=== PATIENT | male | born 1985 | race Caucasian/White ===

== ENCOUNTER 2025-04-02 10:26 | Outpatient (REF) | payer MEDICAID, OTHER, SELFPAY ==
--- OUTSIDE RECORDS SUMMARY | 2025-04-02 09:00 | XMS_ITS | Encounter Summary ---
Author Organization [employer] Address [address] [place] [address] 7 [place] [address] Care Team Providers Care Commercial Lines Assistant Name Role Phone Peter Bey MD Primary Care Provider Reason for Referral * Consultation (Routine) - Authorized Specialty Diagnoses / Procedures Referred By Wily t Referred To Contact Behavioral Health Diagnoses Situational stress Situational insomnia Anxiety Peter Bey MD [address] [place] [address] Phone: tel: fax: Referral ID Status Reason Start Date Expiration Date Visits Requested Visits Authorized [id number] Authorized Specialty Services Required 04/02/2025 04/02/2026 1 1 Reason for Visit * Reason Comments initial patient visit Encounter Details Date Type Department Care Team (Late st Contact Info) Description 04/02/2025 9:00 AM EDT Office Visit [facility] [address] [place] [address] [phone] Peter Bey MD [address] [place] [address] [phone] Anxiety (Primary Dx); Situational stress; Situational insomnia; Screening for cholesterol level; Screening for diabetes mellitus; Encounter for immunization Social History Tobacco Use Types Packs/Day Years Used Date Smoking Tobacco: Never Smokeless Tobacco: Never Tobacco Cessation:Counseling Given: Not Answered Alcohol Use Standard Drinks/Week Comments Never 0 (1 standard drink = 0.6 oz pur e alcohol) Depression Answer Date Recorded Patient Health Questionnaire-9 Score 1 04/02/2025 Patient Health Questionnaire-9 Score 1 04/02/2025 Last PHQ-9: Questionnaire Data Not on file 1 Housing Stability Answer Date Recorded What is your housing situation today? I have diana díaz 04/02/[address] you li ve. Do you have problems with any of the following? None of the above 04/02/2025 Food Insecurity Answer Date Recorded Within the past 12 months, y ou worried that your food would run out before you got money to buy more: Never True 04/02/2025 Within the past 12 months,th e food you bought just didn't last and you didn't have enough money to get more: Never True 07/2024 Transportation Answer Date Recorded In the past 12 months, has l ack of transportation kept you from medical appts, meetings, work or from getting things needed for daily living? No 04/02/2025 Utilities Answer Date Recorded In the past 12 months, has t he electric, gas, oil or water company threatened to shut off services in your home? No 04/02/2025 Depression Answer Date Recorded Patient Health Questionnaire-2 Score 0 04/02/2025 Internet Access Answer Date Recorded Internet Access Q1 Yes 04/02/2025 Internet Access Q2 Not on file 04/02/2025 Sex and Gender Information Value Date Recorded Sex Assigned at Male 05/02/2022 10:40 AM EDT Legal Sex Male 10:40 AM EDT Gender Identity Male 05/02/2022 10:40 AM EDT Sexual Orientation Straight 05/02/2022 10 :40 AM EDT documented as of this encounter Last Filed Vital Signs Vital Sign Reading Time Taken Comments Blood Pressure 122/84 04/02/2025 9:06 AM EDT Pulse 76 04/02/2025 9:06 AM EDT Temperature 36.8 C (98.2 F) 04/02/2025 9:06 AM EDT Respiratory Rate 18 04/02/2025 9:06 AM EDT Oxygen Saturation 99% 04/02/2025 9:06 AM EDT Inhaled Oxygen Concentration - - Weight 85.8 kg (189 lb 3.2 oz) 04/02/2025 9:06 A M EDT Height 180.3 cm (5' 11 ) 04/02/2025 9:06 AM EDT Body Mass Index 26.39 04/02/2025 9:06 AM EDT documented in this encounter Functional Status * Over the past 2 weeks, how often have you been bothered by any of the following problems? Question Answer Date of Assessment Author Patient Health Questionnaire -2 Score 0 04/02/2025 9:58 AM Laura Angel MA * Little interest or pleasure in doing things Answer Date of Assessment Author Not at all 04/02/2025 9:58 AM Barb Angel MA * Feeling down, depressed, or hopeless Answer Date of Assessment Author Not at all 04/02/2025 9:58 AM Barb Angel MA * Trouble falling or staying asleep, or sleeping too much Answer Date of Assessment Author Not at all 04/02/2025 9:58 AM Barb Angel MA * Feeling tired or having little energy Answer Date of Assessment Author Several days 04/02/2025 9:58 AM Barb Angel MA * Poor appetite or overeating Answer Date of Assessment Author Not at all 04/02/2025 9:58 AM Barb Angel MA * Feeling bad about yourself - or that you are a failure or have let yourself or your family down Answer Date of Assessment Author Not at all 04/02/2025 9:58 AM Barb Angel MA * Trouble concentrating on things, such as reading the newspaper or watching television Answer Date of Assessment Author Not at all 04/02/2025 9:58 AM Barb Angel MA * Moving or speaking so slowly that other people could have noticed? Or the opposite - being so fidgety or restless that you have been moving around a lot more than usual. Answer Date of Assessment Author Not at all 04/02/2025 9:58 AM Barb Angel MA * Thoughts that you would be better off or hurting yourself in some way Answer Date of Assessment Author Not at all 04/02/2025 9:58 AM Barb Angel MA * Patient Health Questionnaire-9 Score Answer Date of Assessment Author 1 04/02/2025 9:58 AM EDT Barb Raya MA * How difficult have these problems made it for you to do your work, take care of things at home, or get along with other people? Answer Date of Assessment Author Not difficult at all 04/02/2025 9:58 AM EDT Barb Felix MA * Over the last 2 weeks, how often have you been bothered by any of the following problems? Question Answer Date of Assessment Author Feeling nervous, anxious, or on edge 1 04/02/2025 9:58 AM EDT Laura Raya MA Not being able to stop or control worrying 1 04/02/2025 9:58 AM EDT Laura Raya MA Worrying too much about different things 1 04/02/2025 9:58 AM EDT Laura Raya MA Trouble relaxing 0 04/02/2025 9:58 AM EDT Barb Laws MA Being so restless that it is hard to sit still 0 04/02/2025 9:58 AM EDT Laura Raya MA Becoming easily annoyed or irritable 0 04/02/2025 9:58 AM ALFREDOT Laura Raya MA Feeling afraid as if somethi ng awful might happen 0 04/02/2025 9:58 AM EDT Laura Raya MA CONCHIS-7 Total Score 3 04/02/2025 9:58 AM EDT Barb Raya MA documented as of this encounter Progress Notes * Peter Bey MD - 04/02/2025 9:00 AM EDT Subjective Patient ID: Tashi Mclain is a 40 y.o. male who presents for initial patient visit. Patient comes today for the first time to see me. The patient complains of significant stress, insomnia for several weeks related to a recent divorce. He is not suicidal or homicidal. The patient is physically active, he exercises regularly and has a very good exercise tolerance. He does not drink alcohol, does not smoke cigarettes or use illicit drugs. 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 He does not use any medications. He is interested in medication to help him sleep but does not want anything too strong. Review of Systems Constitutional: Negative for chills, fatigue and fever. HENT: Negative for sore throat. Respiratory: Negative for cough, chest tightness and shortness of breath. Cardiovascular: Negative for chest pain, palpitations and leg swelling. Gastrointestinal: Negative for abdominal pain and blood in stool. Psychiatric/Behavioral: Positive for sleep disturbance. The patient is nervous/anxious. Objective Vitals: 04/02/25 0906 BP: 122/84 BP Location: Left arm Patient Position: Sitting BP Cuff Size: Adult Pulse: 76 Resp: 18 Temp: 98.2 ??F (36.8 ??C) TempSrc: Temporal SpO2: 99% Weight: 189 lb 3.2 oz (85.8 kg) Height: 5' 11 (1.803 m) Physical Exam Constitutional: Appearance: Normal appearance. Cardiovascular: Rate and Rhythm: Normal rate and regular rhythm. Heart sounds: No murmur heard. Pulmonary: Effort: Pulmonary effort is normal. No respiratory distress. Breath sounds: No wheezing, rhonchi or rales. Abdominal: Palpations: Abdomen is soft. Tenderness: There is no abdominal tenderness. Musculoskeletal: Right lower leg: No edema. Left lower leg: No edema. Neurological: Mental Status: He is alert. Assessment/Plan Diagnoses and all orders for this visit: Anxiety Comments: I recommended trial of hydroxyzine at bedtime. Referral to behavioral health. Orders: - Referral to Behavioral Health; Future Situational stress - Referral to Behavioral Health; Future Situational insomnia - Referral to Behavioral Health; Future Screening for cholesterol level Comments: I recommended evaluation with fasting blood work listed below. Orders: - Lipid Panel, Standard; Future Screening for diabetes mellitus - Comprehensive Metabolic Panel; Future - CBC auto differential; Future Encounter for immunization Comments: Tdap and flu vaccines today. Orders: - TDAP VACCINE 7 yrs + - FLU VACCINE TRIVALENT [id number] (Fluarix) 19 yrs + Other orders - hydrOXYzine pamoate (Vistaril) 50 MG capsule; Take 1 capsule (50 mg) by mouth if needed at bedtime for itching for up to 10 days. documented in this encounter Plan of Treatment Upcoming Encounters Date Type Department Care Team (Late st Contact Info) Description 07/02/2025 9:30 AM EST Office Visit [facility] [address] [place] [address] [place], [place] [address] Scheduled Orders Name Type Priority Associated Diagnoses Orde r Schedule Comprehensive Metabolic Panel Lab Routine Screening for diabetes mellitus Expected: 04/02/2025 (Approximate), Expires: 04/02/2026 Lipid Panel, Standard Lab Routine Screening for cholesterol level Expected: 04/02/2025 (Approximate), Expires: 04/02/2026 CBC auto differential Lab Routine Screening for diabetes mellitus Expected: 04/02/2025 (Approximate), Expires: 04/02/2026 Scheduled Referrals Name Type Priority Associated Diagnoses Order Schedule Referral to Behavioral Health Outpatient Referral Routine Situational stress Situational insomnia Anxiety Expected: 04/02/2025 (Approximate), Expires: 09/30/2026 documented as of this encounter Visit Diagnoses Diagnosis Anxiety- Primary Anxiety state, unspecified Situational stress Other psychological or physical stress, not elsewhere classified Situational insomnia Screening for cholesterol level Screening for diabetes mellitus Encounter for immunization documented in this encounter Additional Health Concerns Assessment Noted Time PHQ-9 Depression Total Score: 1 04/02/20 9:58 AM EDT documented as of this encounter Care Teams Commercial Lines Assistant Relationship Specialty Start Date End Date Name, [place] [address] PCP - General Internal Medicine 04/02/25 documented as of this encounter
--- OUTSIDE RECORDS SUMMARY | 2025-04-02 12:05 | XMS_ITS | Encounter Summary ---
Author Organization [employer] [facility] Address [address] [place] [address] 7 [place] [address] Care Team Providers Care System Administration Advisor Name Role Phone Name, Peter GARCIA Primary Care Provider [phone] Encounter Details Date Type Department Care Team (Latest Contact Info) Description 02/23/2022 Abstract [facility], Provider, DDS Social History Tobacco Use Types Packs/Day Years Used Date Smoking Tobacco: Never Assessed Sex and Gender Information Value Date Recorded Sex Assigned at Male 05/02/2022 10:40 AM EDT Legal Sex Male 10:40 AM EDT Gender Identity Male 05/02/2022 10:40 AM EDT Sexual Orientation Straight 05/02/2022 10 :40 AM EDT documented as of this encounter Plan of Treatment Upcoming Encounters Date Type Department Care Team (Late st Contact Info) Description 07/02/2025 9:30 AM EST Office Visit [facility] [address] [place] [address] Name, MD Peter [address] [place] [address] documented as of this encounter Visit Diagnoses Not on filedocumented in this encounter Care Teams System Administration Advisor Relationship Specialty Start Date End Date Name, MD Peter [address] [place] [id number] PCP - General Internal Medicine 04/02/25 documented as of this encounter
--- OUTSIDE RECORDS SUMMARY | 2025-04-02 12:06 | XMS_ITS | Clinical Summary ---
Author Organization [facility] [facility] Address [address] [place] [address] 7 [place] [address] Care Team Providers Care Collection Officer Name Role Phone Name, Peter GARCIA Primary Care Provider [phone] Allergies No known active allergies Medications * This document contains information received from the source organization and may not represent a complete record from that organization. hydrOXYzine pamoate (Vistaril) 50 MG capsule Take 1 capsule (50 mg) by mouth if needed at bedtime for itching for up to 10 days. 30 capsule 04/02/2025 Active Active Problems Problem Noted Date Diagnosed Date Marital problem 04/02/2025 Encounters * This document contains information received from the source organization and may not represent a complete record from that organization. Date Type Department Care Team Description 04/02/2025 9:00 AM EDT Office Visit [facility] [address] [place] [id number] Peter Bey MD Anxiety (Primary Dx); Situational stress; Situational insomnia; Screening for cholesterol level; Screening for diabetes mellitus; Encounter for immunization 03/26/[address] [facility] [address] [place] [address] Peter Bey MD Pre-visit Planning ([facility] unable to reach [facility]) 01/10/[address] [facility] [address] [place] [address] Rigo Tompkins MD from Last 3 Months Immunizations Immunization Administration Dates Next Due Influenza, seasonal, injectable, preservative fr ee 04/02/2025 Tdap 04/02/2025 Family History Medical History Relation Name Comments Hypertension Father Relation Name Status Comments Father Alive Social History Tobacco Use Types Packs/Day Years [...] Orientation Straight 05/02/2022 10 :40 AM EDT Last Filed Vital Signs Vital Sign Reading [...] Mass Index 26.39 04/02/2025 9:06 AM EDT Plan of Treatment Upcoming Encounters Date Type Department Care Team (Late st Contact Info) Description 07/02/2025 9:30 AM EST Office Visit [facility] [address] [place] [address] Name, MD Peter [address] [place] [address] Health Maintenance Due Date Last Done Comments Family Planning (PISQ) 2002 HPV Vaccines (1 - Male 3-dos e series) 2002 Hepatitis B Vaccines (1 of 3 - 19+ 3-dose series) 2006 COVID-19 Vaccine (2023-2 5 season) 2025 Alcohol/Substance Use Screening 04/02/2026 04/02/2025 Depression Screening 04/02/2026 04/02/2025, 04/02/2025 Disability Screening 04/02/2026 04/02/2025 SDOH Screening 04/02/2026 04/02/2025 Tobacco Screening 04/02/2026 04/02/2025 Lipid Panel 12/01/2026 12/01/2021 DTaP/Tdap/Td Vaccines (2 - T d or Tdap) 04/02/2035 04/02/2025 Zoster Vaccines (1 of 2) 2037 RSV Patients and Patients Aged 60 years or older (1 - 1-dose 75+ series) 2062 HIV Screening Completed 12/01/2021 Hepatitis C Screening Completed 12/01/2021 Influenza Vaccine Completed 04/02/2025 HIB Vaccines Aged Out No longer eligi ble based on patient's age to complete this topic Hepatitis A Vaccines Aged Out No long er eligible based on patient's age to complete this topic IPV Vaccines Aged Out No longer eligi ble based on patient's age to complete this topic Meningococcal B Vaccine Aged Out No l onger eligible based on patient's age to complete this topic Meningococcal Vaccine Aged Out No luis antonio renetta eligible based on patient's age to complete this topic Pneumococcal Vaccine: Pediatrics (0 to 5 Years) and At-Risk Patients (6 to 49) Years Aged Out No longer eligible b ased on patient's age to complete this topic RSV under 20 months Aged Out No longe r eligible based on patient's age to complete this topic Rotavirus Vaccines Aged Out No longer eligible based on patient's age to complete this topic Procedures Procedure Name Priority Date/Time Associated Diagnosis Comments ZZZ HISTORICAL HEPATITIS C AB W/REFL TO HCV RNA, QN, PCR Routine 12/01/2021 10:30 AM EDT HIV 1/2 ANTIGEN/ANTIBODY, FOURTH GENERATION W/RFL Routine 12/01/2021 10:30 AM EDT LIPID PANEL, STANDARD Routine 12/01/2021 10:30 AM EDT from Last 3 Months or Most Recently Relevant to Health Maintenance Results * HEPATITIS C AB W/REFL TO HCV RNA, QN, PCR (12/01/2021 10:30 AM EDT) HEPATITIS C ANTIBODY NON-REACT MARYBEL NON-REACT MARYBEL [facility] INDEX 0.07 <1.00 [facility] Comment: HCV antibody was non-reactive. There is no laboratory evidence of HCV infection. In most cases, no further action is required. However, if recent HCV exposure is suspected, a test for HCV RNA (test code 42811) is suggested. For additional information please refer to http://education.Munchkin.[place]/faq/TWW01n2 (This link is being provided for informational/ educational purposes only.) 12/01/2021 10:3 0 AM EDT [facility] HEAD GREENSKEEPER HISTORICAL/NON ORDERABLE LABS Final Result [facility] [address] * HIV 1/2 ANTIGEN/ANTIBODY,FOURTH GENERATION W/RFL (12/01/2021 10:30 AM EDT) Pathologist [facility] [place] HIV-1/2 ANTIGEN AND ANTIBODIES, 4TH GENERATION W/ REFLEX NON-REACT MARYBEL NON-REACT MARYBEL [facility] Comment: HIV-1 antigen and HIV-1/HIV-2 antibodies were not detected. There is no laboratory evidence of HIV infection. PLEASE NOTE: This information has been disclosed to you from records whose confidentiality may be protected by state law. If your state requires such protection, then the state law prohibits you from making any further disclosure of the information without the specific written consent of the person to whom it pertains, or as otherwise permitted by law. A general authorization for the release of medical or other information is NOT sufficient for this purpose. For additional information please refer to http://Dreampod.Backchat/faq/JSQ534 (This link is being provided for informational/ educational purposes only.) The performance of this assay has not been clinically validated in patients less than 2 years old. 12/01/2021 10:3 0 AM EDT [facility] LAB BLOOD ORDERABLES Final Re sult [facility] [address] * (ABNORMAL) LIPID PANEL, STANDARD (12/01/2021 10:30 AM EDT) [facility] Chol/HDLC Ratio 3.5 <5.0 (calc) [facility] Cholesterol, Total 196 <200 mg/dL [facility] HDL Cholesterol 56 > OR = 40 mg/dL [facility] LDL Cholesterol 117(H) mg/dL (calc) [facility] Comment: Reference range: <100 Desirable range <100 mg/dL for primary prevention; <70 mg/dL for patients with CHD or diabetic patients with > or = 2 CHD risk factors. LDL-C is now calculated using the Enrrique calculation, which is a validated novel method providing better accuracy than the Friedewald equation in the estimation of LDL-C. Chadd GREENBERG et al. LOLA. 2013;310(19): 2173-8868 (http://education.Bizratings.com.[place]/faq/PAL639) Non-HDL Cholesterol 140(H) <130 mg/dL (calc) [facility] Comment: For patients with diabetes plus 1 major ASCVD risk factor, treating to a non-HDL-C goal of <100 mg/dL (LDL-C of <70 mg/dL) is considered a therapeutic option. Triglycerides 115 <150 mg/dL [facility] 12/01/2021 10:3 0 AM EDT [facility] [employer] LAB BLOOD ORDERABLES Final Re sult [facility] [address] from Last 3 Months or Most Recently Relevant to Health Maintenance Insurance [facility] F[facility] Care Teams Collection Officer Relationship Specialty Start Date End Date Name, MD Peter [address] [place] [id number] PCP - General Internal Medicine 04/02/25
[2025-04-02 13:10] LABS: MANUAL DIFF FLAG NO
[2025-04-02 13:14] LABS: Hematocrit 42.9 % (42.0-52.0); Hemoglobin 15.0 g/dl (14.0-18.0); Imm Gran Abs Auto 0.02 X10*3/uL (0.00-0.03); Imm Gran Pct Auto 0.2 % (0.0-0.4); Lymphocytes Absolute Auto 2.2 X10*3/uL (1.2-4.9); Mean Corpuscular HGB Conc 35.0 g/dl (31.0-36.0); Mean Corpuscular Hemoglobin 29.0 pg (27.0-33.0); Mean Corpuscular Volume 83.0 fL (80.0-98.0); NRBC Abs Auto 0.000 X10*3/uL (0.0-0.012); NRBC Pct Auto 0.0 /100WBC (0.0-0.2); Platelet Count 244 X10*3/uL (160-400); Red Blood Count 5.17 X10*6/uL (4.60-5.80); White Blood Count 8.3 X10*3/uL (4.8-10.8)
[2025-04-02 13:43] LABS: Alanine Aminotransferase 35 U/L (0-40); Albumin Level 5.3 g/dL (3.5-5.0); Alkaline Phosphatase 64 U/L (39-117); Anion Gap 12 (12-20); Aspartate Amino Transferase 43 U/L (5-37); Blood Urea Nitrogen 13 mg/dL (9-16); Calcium 10.1 mg/dL (8.4-10.2); Carbon Dioxide 27 mmol/L (22-29); Chloride 105 mmol/L (96-108); Cholesterol 194 mg/dL (<200); Estimated Glomerular Filt Rate > 60; HDL Cholesterol 63 mg/dL (>40); Potassium 4.3 mmol/L (3.3-5.1); Sodium 140 mmol/L (135-145); Total Protein 8.3 g/dL (6.5-8.0); Triglycerides 60 mg/dL (<150)
== END 2025-04-02 10:27 | disposition home or self-care (01) ==
LOC: HO.HHCL 10:26
PROVIDERS: PCP Internal Medicine Geriatric Medicine; Visit Provider Internal Medicine Geriatric Medicine
DX: Z13.220 Encounter for screening for lipoid disorders (principal); Z13.1 Encounter for screening for diabetes mellitus
CPT/HCPCS: 36415; 80053; 80061; 85025

== ENCOUNTER 2025-06-14 09:59 | Emergency (ER) | payer MEDICAID, OTHER, SELFPAY ==
[2025-06-14 10:21] VITALS: BP 109/54; PULSE 76; RESP 16; TEMP 36.5; O2SAT 98; BMI 27.7
[2025-06-14 10:51] LABS: Appearance Urine Clear; Glucose Urine UA Negative (Negative); PH 6.5 (5.0-9.0); Specific Gravity - Urine 1.020 (1.005-1.025)
--- NOTE | 2025-06-14 11:47 | ED.MALEGU ---
HPI - Male Genitourinary General Chief complaint: Urogenital-Male Stated complaint: flu symptoms Time Seen by Provider: 06/14/25 12:11 Source: patient, RN notes reviewed and japanese interpreter Mode of arrival: ambulatory Limitations: no limitations History of Present Illness ED Provider: Aimee Rai PA-C HPI Narrative: The patient is a male who presents to the emergency department with a 5-day history of a mild, burning sensation of the penis. The burning is not associated with urination; it occurs primarily at night while lying in bed. He denies dysuria, penile discharge, testicular pain, or rash. He reports recent oral sexual contact and subsequently wiped the genital area with wet wipes he had not used before. He observed a transient dark spot on the glans that resolved spontaneously. He is uncircumcised and has never previously experienced similar symptoms. Patient notes that in his cultural background ( Latinos, we don't do circumcisions ), he has never had any prior issues related to being uncircumcised. The patient also reports feeling ?tired? since yesterday and refers to this as ?the flu,? though he has not been formally tested or diagnosed. He denies seeking care for flu-like symptoms today; primary concern is the genital burning. Genitourinary: Burning sensation of penis (non-urination related) present. Denies dysuria, hematuria, penile discharge, testicular pain, or scrotal swelling. Constitutional: Mild fatigue since yesterday. Denies fever or chills. ENT/Respiratory: Denies cough, sore throat, or nasal congestion. Related Data Home Medications ?Medication ?Instructions ?Recorded ?Confirmed mirtazapine 15 mg tablet 15 mg PO BEDTIME 07/04/25 07/04/25 Allergies Allergy/AdvReac Type Severity Reaction Status Date / Time No Known Allergies Allergy Verified 07/03/25 19:40 Review of Systems Review of Systems: Yes all other systems are reviewed and are negative PMFSH Past Medical History Attestation statement: The following information was validated with the patient. Source: old records reviewed and nursing notes reviewed Surgical History History of incision and drainage Social History Social History Household Members: Other Housing: House Alcohol intake: never Patient Tobacco Use Status: Never used Tobacco Physical Exam Exam: Exam: General: Appears in no acute distress, appears well nourished body habitus is overweight, appears stated age. No septic or ill-appearing. Vitals reviewed normal, PMH/Social and Surgical hx reviewed including allergies and current medications. - reviewed for prior visits here Head: Normocephalic, no obvious trauma or skin lesions noted. Eyes: EOMI ENMT: moist oral mucosa, no lesions Neck: trachea midline, no lymphadenopathy Cardiovascular: peripheral perfusion normal, Regular heart rate Respiratory: no respiratory distress Abdomen: nondistended male: tests distended, no torsion, swelling, erythema, nodules or ttp, no groin lymphadenopathy, 0.5 cm ? 0.4 cm flat, hyperpigmented healing abrasion on the glans, consistent with friction burn. No ulcers, surrounding erythema, or tenderness. Testicles normal. Maintenance Of Way Superintendent present. Extremities: warm and moving without difficulty Psych: Cooperative Neuro: Alert and oriented.? Vital Signs: Vital Signs: Last Vital Signs Temp 97.7 F 06/14/25 12:17 Pulse 76 06/14/25 12:17 Resp 16 06/14/25 12:17 BP 109/54 L 06/14/25 12:17 Pulse Ox 98 06/14/25 12:17 O2 Del Method Room Air 06/14/25 12:17 BMI result Body Mass Index 27.7 Medical Decision Making Medical Decision Making [facility] Narrative: Patient with 5-day history of penile burning likely related to localized irritation/friction burn versus possible candidal balanitis; STI work-up in progress. UA negative for UTI. Problem #1: Penile burning / healing friction abrasion Assessment: Healing hyperpigmented lesion on glans consistent with friction burn following recent sexual activity; no signs of active infection. Burning sensation occurs outside of urination; UA normal. Plan: Topical petroleum jelly recommended for local comfort and to promote healing. Educated on gentle hygiene; avoid irritants such as scented wet wipes. Await STI panel results; patient to be notified when available. Return earlier for increasing pain, discharge, spreading redness, or systemic symptoms. Differential Diagnosis Differential Diagnoses: The differential diagnosis associated with the presentation includes Penile lesion abrasion infectious cellulitis STI Admission/Observation Consideration of admission/observation: Escalation of care including admission/observation considered Lab Data [facility] Lab Attestation statement: I reviewed the patient's lab results. UA neg, g/c negative. no lesions to swab for syphilis or HSV Labs: Lab Results 06/14/25 06/14/25 Range/Units 10:43 10:45 Urine Color Yellow Urine Appearance Clear Urine pH 6.5 (5.0-9.0) Ur Specific [place] 1.020 (1.005-1.025) Urine Protein Negative (Neg-Trace) mg/dL Urine Glucose (UA) Negative (Negative) mg/dL Urine Ketones Negative (Negative) mg/dL Urine Blood Negative (Negative) Urine Nitrite Negative (Negative) Ur Leukocyte Esterase Negative (Negative) Ur N gonorrhoeae DNA (PCR) NOT DETECTED (Not Detect.) Ur Chlamydia DNA (PCR) NOT DETECTED (Not Detect.) Prescription Management I considered prescription management with: Antibiotic Social Determinants Patient?s care significantly limited by Social Determinants of Health including: Other Social Determinant of Health Discharge Plan Discharge Clinical Impression: Friction burn Patient Disposition: Home, Self-Care Additional Instructions: You have a healing friction burn on your penis. This is not consistent with sexually transmitted infection. Your urine is not infected. Your gonorrhea/ chlamydia test is pending. If positive, we will call you with these results as early as Monday. Recommend putting vasoline on this area as it heals. Return for any concerns. Voc? apresenta rasheed queimadura por atrito em processo de cicatriza??o no p?nis. Isso n?o ? compat?silvio com infec??o sexualmente transmiss?silvio. Sua urina n?o est? infectada. O resultado do seu exame de gonorreia/clam?sly est? pendente. Se o resultado for positivo, entraremos em contato com voc? assim que poss?silvio, provavelmente na segunda-feira. Recomendamos aplicar vaselina na ?odessa afetada dara o processo de cicatriza??o. Retorne em julian de qualquer d?jose ou preocupa??o. Prescriptions: No Action mirtazapine 15 mg tablet 15 mg PO BEDTIME Interventions: ED Discharge Assessment Last Done: 06/14/25 12:17 Discharge Date/Time: 06/14/25 12:18 Print Language: Brazilian
--- OUTSIDE RECORDS SUMMARY | 2025-06-14 12:14 | XMS_ITS | Encounter Summary ---
Author Organization [facility] Address [address] [place] [address] [address] [place] [address] Care Team Providers Care Manager Mechanical Maintenance Name Role Phone Name, Peter GARCIA Primary Care Provider [phone] Encounter Details Date Type Department Care Team (Latest Contact Info) Description 02/23/2022 Abstract [facility] CONVERSIONS Dental, Provider, DDS Social History Tobacco [...] Description 07/02/2025 9:30 AM EST Office Visit [facility] [address] [place] [phone] Name, MD Peter [address] [place] [address] documented as of this encounter Visit Diagnoses Not on filedocumented in this encounter Care Teams Manager Mechanical Maintenance Relationship Specialty Start Date End Date Name, MD Peter [address] [place] [phone] PCP - General Internal Medicine 04/02/25 documented as of this encounter
--- OUTSIDE RECORDS SUMMARY | 2025-06-14 12:14 | XMS_ITS | Clinical Summary ---
Author Organization [facility] Address [address] [facility] [address] [place] [address] Care Team Providers Care Automatic Edger Name Role Phone Name, Peter GARCIA Primary Care Provider [phone] Allergies No known active allergies Medications * This document contains information received from the source organization and may not represent a complete record from that organization. mirtazapine (Remeron) 15 MG tablet Take 1 tablet (15 mg) by mouth at bedtime. 30 tablet 05/28/2025 11:25 AM EST 06/27/20 25 Active hydrOXYzine pamoate (Vistaril) 50 MG capsule Take 1 capsule (50 mg) by mouth if needed at bedtime for itching for up to 10 days. 30 capsule 5 05/28/20 25 Discontinu ed(Ineffec tive) traZODone (Desyrel) 50 MG tabletIndication s:Insomnia secondary to situational depression Take 1 tablet (50 mg) by mouth at bedtime. 30 tablet 5 05/28/20 25 Discontinu ed(Ineffec tive) Active Problems Problem Noted Date Diagnosed Date Adjustment disorder, unspecified 04/08/2025 Assessment & Plan (05/28/2025 1:57 PM EST): counselor evaluated him today. Start mirtazapine at bedtime, hold for sedation. Discuss about potentially increasing of appetite, call back prn if intolerance FU with PCP Marital problem 04/02/2025 Encounters * This document contains information received from the source organization and may not represent a complete record from that organization. Date Type Department Care Team Description 05/28/2025 9:00 AM EST Office Visit [facility] [address] [address] Leslie Akhtar MD Adjustment disorder with depressed mood (Primary Dx) 05/28/2025 Travel 05/07/2025 9:20 AM EST Office Visit [facility] [address] [place] [address] Nidia Hodges NP Insomnia secondary to situational depression (Primary Dx) 05/07/2025 Travel 04/15/2025 Results Follow-Up [facility] [address] [place] [phone] Peter Bey MD Comprehensive Metabolic Panel, Lipid Panel, Standard, CBC auto differential 04/02/2025 9:00 AM EDT Office Visit [facility] [address] [place] [phone] Peter Bey MD Anxiety (Primary Dx); Situational stress; Situational insomnia; Screening for cholesterol level; Screening for diabetes mellitus; Encounter for immunization 03/26/2025 Patient Outreach [facility] [address] [place] [address] Peter Bey MD Pre-visit Planning (SDOH unable to reach [facility]) from Last 3 Months Immunizations Immunization Administration [...] Answer Date Recorded Patient Health Questionnaire-9 Score 8 05/28/2025 Patient Health Questionnaire-9 Score 8 05/28/2025 Last PHQ-9: Questionnaire Data Not on file 1 07/28/2024 Housing Stability Answer Date Recorded What is [...] Answer Date Recorded Patient Health Questionnaire-2 Score 3 05/28/2025 Internet Access Answer Date Recorded Internet Access [...] Sign Reading Time Taken Comments Blood Pressure 110/70 05/28/2025 8:50 AM EST Pulse 81 05/28/2025 8:50 AM EST Temperature 36.7 C (98.1 F) 05/28/2025 8:50 AM EST Respiratory Rate 18 05/28/2025 8:50 AM EST Oxygen Saturation 97% 05/28/2025 8:50 AM EST Inhaled Oxygen Concentration - - Weight 83.6 kg (184 lb 3.2 oz) 05/28/2025 8:50 A M EST Height 182 cm (5' 11.65 ) 05/28/2025 8:50 AM EST Body Mass Index 25.22 05/28/2025 8:50 AM EST Plan of Treatment Upcoming Encounters Date Type Department Care Team (Late st Contact Info) Description 07/02/2025 9:30 AM EST Office Visit [facility] [address] [place] [address] Name, MD Peter [address] [place] [address] Health Maintenance Due Date Last Done Comments Family Planning (PISQ) 2002 HPV Vaccines (1 - Male 3-dos e series) 2002 Hepatitis B Vaccines (1 of 3 - 19+ 3-dose series) 2006 COVID-19 Vaccine ( - 2024-2 6 season) 2025 Alcohol/Substance Use Screening 04/02/2026 04/02/2025 Disability Screening 04/02/2026 04/02/2025 SDOH Screening 04/02/2026 04/02/2025 Depression Screening 05/28/2026 05/28/2025, 05/28/2025 Tobacco Screening 05/28/2026 05/28/2025 Lipid Panel 04/02/2030 04/02/2025, 12/01/2021 DTaP/Tdap/Td Vaccines (2 - T d [...] Procedure Name Priority Date/Time Associated Diagnosis Comments CBC WITH AUTO DIFFERENTIAL Routine 04/02/2025 11:02 AM EDT Screening for diabetes mellitus LIPID PANEL, STANDARD Routine 04/02/2025 11:02 AM EDT Screening for cholesterol level COMPREHENSIVE METABOLIC PANEL Routine 04/02/2025 11:02 AM EDT Screening for diabetes mellitus ZZZ HISTORICAL HEPATITIS C AB W/REFL TO HCV RNA, QN, PCR Routine 12/01/2021 10:30 AM EDT HIV 1/2 ANTIGEN/ANTIBODY, FOURTH GENERATION W/RFL Routine 12/01/2021 10:30 AM EDT from Last 3 Months or Most Recently Relevant to Health Maintenance Results * CBC auto differential (04/02/2025 11:02 AM EDT) White Blood Count 8.3 4.8 - 10.8 X10*3/uL [facility] Red Blood Count 5.17 4.60 - 5.80 X10*6/uL [facility] Hemoglobin 15.0 14.0 - 18.0 g/dl [facility] Hematocrit 42.9 42.0 - 52.0 % [facility] Mean Corpuscular Volume 83.0 80.0 - 98.0 fL [facility] Mean Corpuscular Hemoglobin 29.0 27.0 - 33.0 pg [facility] Mean Corpuscular HGB Conc 35.0 31.0 - 36.0 g/dl [facility] Red Cell Distribution Width 12.6 11.0 - 16.0 % [facility] Platelet Count 244 160 - 400 X10*3/uL [facility] Mean Platelet Volume 10.3 9.4 - 12.4 fL [facility] Neutrophils Percent Auto 68.0 45 - 73 % [facility] Imm Gran Pct Auto 0.2 0.0 - 0.4 % [facility] Lymphocytes Percent Auto 26.9 20 - 40 % [facility] Monocytes Percent Auto 4.7 2 - 11 % [facility] Eosinophils Percent Auto 0.0 0 - 4 % [facility] Basophils Percent Auto 0.2 0 - 2 % [facility] NRBC Pct Auto 0.0 0.0 - 0.2 /100WBC [facility] Neutrophils Absolute Auto 5.6 2.0 - 8.3 x10*3/uL [facility] Imm Gran Abs Auto 0.02 0.00 - 0.03 X10*3/uL [facility] Lymphocytes Absolute Auto 2.2 1.2 - 4.9 X10*3/uL [facility] Monocytes Absolute Auto 0.4 0.1 - 1.2 X10*3/uL [facility] Eosinophils Absolute Auto 0.0 0.0 - 0.4 X10*3/uL [facility] Basophils Absolute Auto 0.0 0.0 - 0.2 X10*3/uL [facility] NRBC Abs Auto 0.000 0.0 - 0.012 X10*3/uL [facility] Blood Venous blood specimen / Unknown 04/02/2025 11:02 AM EDT 04/02/2025 1:06 PM EDT us Peter Name LAB BLOOD ORDERABLES Final Resul t [facility] [address] [place] [phone] [phone] * (ABNORMAL) Lipid Panel, Standard (04/02/2025 11:02 AM EDT) Triglycerides 60 <150 mg/dL [facility] Comment:Desirable Triglyceri de: less than 150 mg/dLBorderline High Triglyceride 150-199 mg/dLHigh Triglyceride: 200-499 mg/dLVery High Triglyceride: greater than or equal to 5OO mg/dL Cholesterol 194 <200 mg/dL [facility] Comment:Desirable Cholestero l: less than 200 mg/dLBorderline High Cholesterol: 200-239 mg/dLHigh Cholesterol: greater than 239 mg/dL LDL Cholesterol Calculated 119(H) <100 mg/dL [facility] Comment:Desirable LDL: less than 100 mg/dLNear Optimal/Above Optimal LDL: 110- 129 mg/dLBorderline High LDL: 130-159 mg/dLHigh LDL: 160-189 mg/dLVery High LDL: greater than or equal to 190 mg/dL HDL Cholesterol 63 >40 mg/dL [facility] Comment:Desirable HDL: great er than 40 mg/dL Note: This HDL assay may give artificially low results in patients with liver disease. Blood Venous blood specimen / Unknown 04/02/2025 11:02 AM EDT 04/02/2025 1:11 PM EDT us Peter Name MD LAB BLOOD ORDERABLES Final Resul t [facility] [address] [place] [address] [phone] * (ABNORMAL) Comprehensive Metabolic Panel (04/02/2025 11:02 AM EDT) Sodium 140 135 - 145 mmol/L [facility] Potassium 4.3 3.3 - 5.1 mmol/L [facility] Chloride 105 96 - 108 mmol/L [facility] Carbon Dioxide 27 22 - 29 mmol/L [facility] Anion Gap 12 12 - 20 [facility] Urea Nitrogen (BUN) 13 9 - 16 mg/dL [facility] Creatinine, Serum 1.15 0.5 - 1.4 mg/dL [facility] Estimated Glomerular Filt Rate >60 [facility] Comment:Chronic Kidney Disea se: Estimated GFR < 60 mL/min/1.28d0Pgbmjs Kidney Disease: Estimated GFR < 15 mL/min/1.73m2 Glucose 96 60 - 115 mg/dL [facility] Calcium 10.1 8.4 - 10.2 mg/dL [facility] Bilirubin, Total 0.9 0.0 - 1.0 mg/dL [facility] Aspartate Amino Transferase 43(H) 5 - 37 U/L [facility] Alanine Aminotransferase 35 0 - 40 U/L [facility] Total Protein 8.3(H) 6.5 - 8.0 g/dL [facility] Albumin Level 5.3(H) 3.5 - 5.0 g/dL [facility] Alkaline Phosphatase 64 39 - 117 U/L [facility] Blood Venous blood specimen / Unknown 04/02/2025 11:02 AM EDT 04/02/2025 1:11 PM EDT us Peter Bey MD LAB BLOOD ORDERABLES Final Resul t [facility] [address] [place] [address] [phone] * HEPATITIS C AB W/REFL TO HCV [...] a test for HCV RNA (test code 07162) is suggested. For additional information please refer to http://education.FanKave/faq/VRI24y0 (This link is being provided for informational/ educational purposes only.) 12/01/2021 10:3 0 AM EDT [facility] STICKER ON HISTORICAL/NON ORDERABLE LABS Final Result Performing Organization Address [facility] Co de Phone Number [facility] [address] * HIV 1/2 ANTIGEN/ANTIBODY,FOURTH GENERATION W/RFL (12/01/2021 10:30 AM EDT) HIV-1/2 ANTIGEN AND ANTIBODIES, 4TH GENERATION W/ [...] purpose. For additional information please refer to http://education.Wantful.com/faq/TDR565 (This link is being provided for informational/ educational purposes only.) The performance of this assay has not been clinically validated in patients less than 2 years old. 12/01/2021 10:3 0 AM EDT [facility] STICKER ON LAB BLOOD ORDERABLES Final Re sult [facility] [address] from Last 3 Months or Most Recently Relevant to Health Maintenance Insurance [facility] [employer] Care Teams Automatic Edger Relationship Specialty Start Date End Date Name, MD Peter [address] [place] [phone] PCP - General Internal Medicine 04/02/25
[2025-06-14 12:17] VITALS: BP 109/54; PULSE 76; RESP 16; TEMP 36.5; O2SAT 98
[2025-06-14 12:21] LABS: CT PCR Urine NOT DETECTED (Not Detect.); NG PCR Urine NOT DETECTED (Not Detect.)
== END 2025-06-14 12:18 | disposition home or self-care (01) ==
PROVIDERS: Emergency Provider Emergency Medicine
DX: T21.06XA Burn of unspecified degree of male genital region, initial encounter (principal); T31.0 Burns involving less than 10% of body surface; X08.8XXA Exposure to other specified smoke, fire and flames, initial encounter; Y93.9 Activity, unspecified; Y92.9 Unspecified place or not applicable; Z20.2 Contact with and (suspected) exposure to infections with a predominantly sexual mode of transmission
CPT/HCPCS: 81003; 87491; 87591; 99282